=== PATIENT | female | born 1940 | race Caucasian/White ===

== ENCOUNTER 2016-12-28 12:21 | Inpatient (IN) | payer MEDICARE ==
--- NOTE | 2016-12-28 13:32 | XR ---
EXAMINATION TYPE: XR shoulder complete RT , 3 VIEWS DATE OF EXAM ORDERED: 12/28/2016 HISTORY: Pain. COMPARISON: None. FINDINGS: There are mild hypertrophic changes in the right AC joint. No fracture, dislocation or oth er acute osseous lesion is seen. IMPRESSION: 1. NO ACUTE OSSEOUS LESION. 2. MILD DEGENERATIVE CHANGE.
--- NOTE | 2016-12-28 13:40 | XR ---
EXAMINATION TYPE: XR Hip RT and AP Pelvis , 5 VIEWS DATE OF EXAM ORDERED: HISTORY: Pain. COMPARISON: None. FINDINGS: There are degenerative changes in the lower lumbar spine. There is mild degenerative ojeda e in both hips. No acute fracture is seen. There are phleboliths in the pelvis. IMPRESSION: NO ACUTE OSSEOUS LESION.
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
--- NOTE | 2016-12-28 14:36 | CT ---
EXAMINATION TYPE: CT hip RT wo con DATE OF EXAM: 12/28/2016 COMPARISON: Pelvic and right hip x-ray from earlier today. HISTORY: pt fell down some steps today. pain rt hip area. CT DLP: 289 mGycm Automated exposure control for dose reduction was used. FINDINGS: Osseous structures are demineralized which is noted to lower radiographic sensitivity. There is acute nondisplaced comminuted fracture through the inferior right pelvic ramus. No additional acute fractu re is evident. Visualized femur is intact. There is moderate joint space loss and mild spurring. Roun ded densities in the anterolateral subcutaneous tissue could reflect phleboliths or foreign body. Visualized pelvis shows no suspicious abnormality. IMPRESSION: THERE IS ACUTE NONDISPLACED FRACTURE THROUGH THE RIGHT INFERIOR PELVIC RAMUS.
[2016-12-28] MEDS ORDERED: HYDROcodone/APAP 5-325MG 1 EACH TAB PO PRN (16:02)
[2016-12-28] MEDS ORDERED: HYDROmorphone 0.5 MG/0.5 ML SYRINGE IVP PRN (16:02)
[2016-12-28] MEDS ORDERED: ONDANSETRON 4 MG/2 ML VIAL IVP PRN (16:02)
[2016-12-28] MEDS ORDERED: NALOXONE 0.4 MG/ML 1 ML VIAL IV PRN (16:02)
[2016-12-28] MEDS ORDERED: ACETAMINOPHEN TAB 325 MG TAB PO PRN (16:02)
[2016-12-28] MEDS ORDERED: MELATONIN 3 MG TABLET PO PRN (17:06)
--- NOTE | 2016-12-28 17:16 | XR ---
EXAMINATION TYPE: XR chest 1V portable DATE OF EXAM: 12/28/2016 CLINICAL HISTORY: Preoperative clearance. TECHNIQUE: Single AP portable upright view of the chest is obtained. COMPARISON: Chest x-ray from December 01, 2015 FINDINGS: There is chronic parenchymal change without suspicious focal airspace opacity, pleural eff usion, or pneumothorax seen bilaterally. The cardiac silhouette size is stable and within normal limi ts. The osseous structures are demineralized. IMPRESSION: No acute cardiopulmonary process.
[2016-12-28 17:40] VITALS: BMI 25.7
[2016-12-28 18:39] LABS: Basophils % (A) 0 %; CH 30.8; CHCM 33.2; Eosinophils # (A) 0.2 k/uL (0-0.7); Eosinophils % (A) 3 %; HCT 37.7 % (34.0-46.0); HGB 12.3 gm/dL (11.4-16.0); Luc # (Auto) 0.11; Luc % (Auto) 2; Lymphocytes # (A) 1.1 k/uL (1.0-4.8); Lymphocytes % (A) 17 %; MCH 30.5 pg (25.0-35.0); MCHC 32.7 g/dL (31.0-37.0); MCV 93.2 fL (80.0-100.0); Mean Platelet Volume 8.1; Monocytes # (A) 0.4 k/uL (0-1.0); Monocytes % (A) 7 %; Neutrophils # (A) 4.5 k/uL (1.3-7.7); Neutrophils % (A) 72 %; RBC 4.05 m/uL (3.80-5.40); RDW 13.9 % (11.5-15.5); WBC 6.3 k/uL (3.8-10.6); WBC (Perox) 6.22
[2016-12-28 18:47] LABS: ALT 39 U/L (9-52); AST 21 U/L (14-36); Alkaline Phosphatase 53 U/L (38-126); Anion Gap 13 mmol/L; Blood Urea Nitrogen 17 mg/dL (7-17); Calcium 10.2 mg/dL (8.4-10.2); Carbon Dioxide 25 mmol/L (22-30); Chloride 106 mmol/L (98-107); Glucose 83 mg/dL (74-99); Non-African American GFR(MDRD) >60 (>60 ml/min/1.73 sqM); Potassium 3.9 mmol/L (3.5-5.1); Sodium 144 mmol/L (137-145); Total Bilirubin 0.2 mg/dL (0.2-1.3); Total Protein 7.4 g/dL (6.3-8.2)
--- NOTE | 2016-12-28 19:28 | CONS ---
CONSULTATION DATE OF SERVICE: 12/28/2016. REASON FOR CONSULTATION: Advice regarding diabetes, and hypertension requested by Orthopedic surgery. HISTORY OF PRESENT ILLNESS: This 76-year-old woman with a past history diabetes, hypertension, history of DJD being followed by Dr. Payne in the outpatient setting also had right leg amputation also. The patient also was recently diagnosed to have osteoporosis as well also diabetes also. Patient apparently was going down the stairs. The patient tripped and apparently landed on the right side and the patient complaining of right hip pain. The patient came to [facility] and was admitted for further evaluation and treatment. Evaluation showed suspicious pubic ramus fracture as well as fracture and the patient admitted for further evaluation and treatment. There is no history of fever, rigors. No headache, loss of consciousness or seizures. No chest pain. No palpitations, shortness of breath, hematochezia or melena. PAST MEDICAL: Diabetes and hypertension. MEDICATIONS: Prior to admission include home medications are: 1. Benadryl 25 mg q.h.s. 2. Multivitamins 1 p.o. daily. 3. Melatonin 3 mg p.r.n. 4. Prinivil 10 mg daily. 5. Vitamin D3 1000 daily. 6. Aspirin 81 mg q.h.s. ALLERGIES: CLARITIN, INFLUENZA, LATEX AND FAMILY HISTORY: History of CVA AND TIA in the family. SOCIAL HISTORY: Previous history of smoking. No history of current smoking or alcohol intake. REVIEW OF SYSTEMS: ENT: No diminished vision. No diminished hearing. Cardiovascular: No angina or palpitations. Respirations: No cough. GI: No nausea or vomiting. : No dysuria. Central nervous system: No numbness or weakness. Allergy/Immunology: No asthma or hayfever. Musculoskeletal as mentioned earlier. Hematology/Oncology: No history of anemia. Endocrine: No history of diabetes or hypothyroidism. CONSTITUTIONAL: As mentioned earlier. Dermatology: Negative. RHEUMATOLOGY: Negative. PSYCHIATRY: As mentioned earlier. PHYSICAL EXAMINATION: Alert and oriented times three. Pulse 64, blood pressure 158/69, respirations 16 , temperature 98.7, pulse ox 94% on room air. HEENT: Conjunctivae normal. Neck: No jugular venous distention. Cardiovascular : S1, S2 muffled. Respiratory: Breath sounds diminished in the bases. No rhonchi. No crackles. ABDOMEN: Soft, nontender. No mass. Legs: Movement of the right leg is slightly painful. Nervous system: Higher functions as mentioned earlier. Moves all four limbs. No focal deficits. Lymphatics: No lymph nodes palpable in the neck, axillae or groin. Skin no ulcer, rash or bleeding. LABS: 1. Not available. ASSESSMENT: 1. Fall and right hip pain. Possibly pubic ramus fracture and acetabular fracture. Rule out femoral fracture. 2. Diabetes type 2. Recently on diet alone. 3. Hypertension. 4. History of degenerative joint disease. 5. History of osteoporosis. 6. History of right foot amputation. RECOMMENDATIONS AND DISCUSSION: In this 76-year-old woman who presented with multiple complex medical issues, at this time, I recommend to continue current medications. Symptomatic treatment. Otherwise at this time, I would recommend resume the home medications and basic labs, DVT prophylaxis. Incentive spirometry. Patient appears to be stable at this time and the patient cleared for surgery if needed. Otherwise I would also recommend the patient follow up closely with Dr. Payne in the outpatient setting for evaluation of osteoporosis. Otherwise the patient is already on vitamin D and continue to monitor and at this time I would recommend insulin scale also. Otherwise the prognosis is guarded. Thank you Dr. Christine for letting us participate in the care of this patient. MMODL / IJN: [id number] / SONIA
[2016-12-28 20:11] LABS: Glucose,Whole Blood 143 mg/dL (75-99)
[2016-12-28] MEDS: LISINOPRIL 10 MG TAB PO SCH (20:57)
[2016-12-28] MEDS ORDERED: diphenhydrAMINE 25 MG CAP PO SCH (21:00)
[2016-12-28] MEDS ORDERED: ASPIRIN 81 MG PO SCH (21:00)
[2016-12-28] MEDS: HEPARIN SODIUM,PORCINE 5,000 UNIT/ML 1 ML VIAL SQ SCH (22:07)
[2016-12-28] MEDS: INSULIN LISPRO (humaLOG) 300 UNIT/3 ML VIAL SQ SCH (22:08)
[2016-12-29] MEDS ORDERED: HEPARIN SODIUM,PORCINE 5,000 UNIT/ML 1 ML VIAL SQ SCH
[2016-12-29 01:42] VITALS: PULSE 54
[2016-12-29 06:59] LABS: Glucose,Whole Blood 100 mg/dL (75-99)
[2016-12-29 08:21] VITALS: BP 121/61; RESP 12; TEMP 98
[2016-12-29] MEDS: INSULIN LISPRO (humaLOG) 300 UNIT/3 ML VIAL SQ SCH ×2 (08:21→12:40)
[2016-12-29] MEDS: LISINOPRIL 10 MG TAB PO SCH (08:38)
[2016-12-29] MEDS: HEPARIN SODIUM,PORCINE 5,000 UNIT/ML 1 ML VIAL SQ SCH (08:39)
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
[2016-12-29 09:01] LABS: Basophils % (A) 0 %; CH 29.5; CHCM 32.6; Eosinophils # (A) 0.2 k/uL (0-0.7); Eosinophils % (A) 4 %; HCT 37.1 % (34.0-46.0); HDW 2.71; HGB 11.8 gm/dL (11.4-16.0); Luc # (Auto) 0.15; Luc % (Auto) 4; Lymphocytes # (A) 0.8 k/uL (1.0-4.8); Lymphocytes % (A) 20 %; MCHC 31.9 g/dL (31.0-37.0); Mean Platelet Volume 7.4; Monocytes # (A) 0.3 k/uL (0-1.0); Monocytes % (A) 7 %; Neutrophils # (A) 2.8 k/uL (1.3-7.7); Neutrophils % (A) 66 %; RBC 4.08 m/uL (3.80-5.40); WBC 4.2 k/uL (3.8-10.6); WBC (Perox) 4.32
[2016-12-29 09:05] LABS: Anion Gap 11 mmol/L; Blood Urea Nitrogen 17 mg/dL (7-17); Calcium 9.7 mg/dL (8.4-10.2); Carbon Dioxide 25 mmol/L (22-30); Chloride 108 mmol/L (98-107); Glucose 92 mg/dL (74-99); Non-African American GFR(MDRD) >60 (>60 ml/min/1.73 sqM); Potassium 4.2 mmol/L (3.5-5.1); Sodium 144 mmol/L (137-145)
[2016-12-29 11:38] LABS: Hemoglobin A1C 5.7 % (4.2-6.1)
[2016-12-29] MEDS ORDERED: CHOLECALCIFEROL 1,000 UNIT TAB PO SCH (12:00)
[2016-12-29] MEDS ORDERED: MULTIVITAMINS, THERA 1 EACH TAB PO SCH (12:00)
[2016-12-29 12:10] LABS: Glucose,Whole Blood 91 mg/dL (75-99)
--- NOTE | 2016-12-29 17:41 | PN ---
PROGRESS NOTE PRESENTING COMPLAINT: Fall. INTERVAL HISTORY: The patient is status post fall and fracture of the acetabulum and the pubic rami. Some pain is present but is able to get out of bed. Tolerating a diet. Not for any surgical intervention, per Surgery. REVIEW OF SYSTEMS: Done for constitutional, cardiovascular, GI, pulmonary, musculoskeletal; relevant findings as above. CURRENT MEDICATIONS: Reviewed. PHYSICAL EXAMINATION: Temperature 98, pulse 54, respiration 12, blood pressure 120/61, pulse ox 94% on room air. GENERAL APPEARANCE: Lying in bed, comfortable. EYES: Pupils equal.. Conjunctivae normal. NECK: JVD not raised. Mass not palpable. RESPIRATORY: Effort normal. LUNGS: Fair air entry. CARDIOVASCULAR: First and second sounds normal. PSYCH: Alert and oriented x3. Mood and affect normal. INVESTIGATIONS: White count 4.2, hemoglobin 11.8, potassium 4.2. ASSESSMENT: 1. Diabetes mellitus, type 2, on oral hypoglycemic. 2. Essential hypertension. 3. Primary osteoarthritis in multiple joints, bilateral. 4. Prosthesis in the right lower extremity. 5. Acute non-displaced fracture to the right inferior pelvic rami. 6. Possible non-displaced acetabular fracture on the right. PLAN: Home medications are to be continued. Care was discussed with the patient. Possibly patient will go home with support. Thank you, Dr. Christine. Patient to follow with Dr. Payne after discharge. MMODL / IJN: [id number] /
== END 2016-12-29 13:10 | disposition home health service (06) | DRG 535 ==
LOC: EC 12:21 → 3SUR 16:00
PROVIDERS: ADMIT Orthopaedic Surgery Hand Surgery; ATTEND Orthopaedic Surgery Hand Surgery
DX: S32.591A Other specified fracture of right pubis, initial encounter for closed fracture (principal); S32.409A Unspecified fracture of unspecified acetabulum, initial encounter for closed fracture; E11.9 Type 2 diabetes mellitus without complications; S33.6XXA Sprain of sacroiliac joint, initial encounter; S40.011A Contusion of right shoulder, initial encounter; I10 Essential (primary) hypertension; M81.0 Age-related osteoporosis without current pathological fracture; M19.91 Primary osteoarthritis, unspecified site; Z79.82 Long term (current) use of aspirin; Z79.899 Other long term (current) drug therapy; Z89.431 Acquired absence of right foot; Z87.891 Personal history of nicotine dependence; Z90.710 Acquired absence of both cervix and uterus; Z88.7 Allergy status to serum and vaccine; Z88.8 Allergy status to other drugs, medicaments and biological substances; Z91.040 Latex allergy status; W10.8XXA Fall (on) (from) other stairs and steps, initial encounter; Y92.008 Other place in unspecified non-institutional (private) residence as the place of occurrence of the external cause
CPT/HCPCS: 71010; 73502; 80048; 80053; 83036; 85025; 93005; 99285

== ENCOUNTER 2018-07-21 01:24 | Emergency (ER) | payer MEDICARE ==
[2018-07-21 01:32] VITALS: TEMP 98.3
[2018-07-21] MEDS ORDERED: OXYMETAZOLINE 0.05% NASL SPRAY 1 SPRAY BOTTLE NASAL STA (01:38)
[2018-07-21] MEDS ORDERED: LIDOCAINE/EPINEPHR/TETRACAINE 5 ML BOTTLE TOPICAL ONE (01:38)
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
[2018-07-21 02:33] VITALS: BP 130/73; PULSE 90; RESP 16
== END 2018-07-21 02:32 | disposition home or self-care (01) ==
LOC: EC 01:24
DX: R04.0 Epistaxis (principal); I10 Essential (primary) hypertension; Z79.82 Long term (current) use of aspirin; Z79.899 Other long term (current) drug therapy; Z88.8 Allergy status to other drugs, medicaments and biological substances; Z91.040 Latex allergy status; Z88.7 Allergy status to serum and vaccine; Z87.891 Personal history of nicotine dependence; Z89.431 Acquired absence of right foot
CPT/HCPCS: 99283

== ENCOUNTER 2019-04-07 18:29 | Emergency (ER) | payer MEDICARE ==
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
[2019-04-07] MEDS ORDERED: SODIUM CHLORIDE 0.9% 1,000 ML IV STA (19:55)
[2019-04-07 20:25] LABS: Basophils # (A) 0.1 k/uL (0-0.2); Basophils % (A) 1 %; Eosinophils # (A) 0.2 k/uL (0-0.7); Eosinophils % (A) 3 %; HCT 39.8 % (34.0-46.0); HGB 13.3 gm/dL (11.4-16.0); Lymphocytes # (A) 1.4 k/uL (1.0-4.8); Lymphocytes % (A) 24 %; MCH 29.8 pg (25.0-35.0); MCHC 33.3 g/dL (31.0-37.0); MCV 89.5 fL (80.0-100.0); Mean Platelet Volume 7.9; Monocytes # (A) 0.4 k/uL (0-1.0); Monocytes % (A) 7 %; Neutrophils # (A) 3.8 k/uL (1.3-7.7); Neutrophils % (A) 63 %; Platelet Count 213 k/uL (150-450); RBC 4.45 m/uL (3.80-5.40); RDW 12.9 % (11.5-15.5); WBC 6.1 k/uL (3.8-10.6)
[2019-04-07 20:28] LABS: Appearance,Urine Clear (Clear); Bacteria,Urine Many /hpf; Bilirubin,Urine Negative (Negative); Blood,Urine Negative (Negative); Color,Urine Light Yellow; Glucose,Urine (UA) Negative (Negative); Ketones,Urine Negative (Negative); Leukocyte Esterase,Urine Trace (Negative); Mucus,Urine Rare /hpf; Nitrite,Urine Negative (Negative); PH, Urine 5.5 (5.0-8.0); Protein,Urine Negative (Negative); RBC,Urine <1 /hpf (0-5); Squamous Epithelial Cell,Urine 2 /hpf (0-4); Urobilinogen,Urine <2.0 mg/dL (<2.0); WBC,Urine 2 /hpf (0-5)
[2019-04-07 20:35] LABS: Albumin 4.6 g/dL (3.5-5.0); Calcium 9.6 mg/dL (8.4-10.2); Magnesium 2.1 mg/dL (1.6-2.3); Phosphorus 3.8 mg/dL (2.5-4.5); Potassium 3.8 mmol/L (3.5-5.1); Total Bilirubin 0.4 mg/dL (0.2-1.3); Total Protein 7.9 g/dL (6.3-8.2)
[2019-04-07 20:40] LABS: INR 0.9 (<1.2); Prothrombin Time 9.5 sec (9.0-12.0)
[2019-04-07 20:41] LABS: Partial Thromboplastin Time 21.3 sec (22.0-30.0)
--- NOTE | 2019-04-07 21:34 | CT ---
EXAMINATION: CT brain wo con DATE AND TIME: 04/07/2019 9:27 PM CLINICAL INDICATION: PHH; weakness TECHNIQUE: Standard departmental protocol.; DLP total: 1193.8 mGy-cm. COMPARISON: 12/01/2015 FINDINGS: The calvarium is intact. There is no intracranial hemorrhage. There is no intracranial mass or mass effect. No definite new intra-axial or extra-axial attenuation defect. The paranasal sinuses, middle ear cavities, and mastoid sinus air cells are clear. The orbits are unremarkable. IMPRESSION: NO ACUTE PROCESS.
--- NOTE | 2019-04-07 22:08 | CT ---
EXAMINATION TYPE: CT angio head neck DATE OF EXAM: 04/07/2019 COMPARISON: None HISTORY: Weakness. CT DLP: 465.7 mGycm Automated exposure control for dose reduction was used. CONTRAST: Performed with IV Contrast, patient injected with 65ml mL of Isovue 370. Multiple axial sections were obtained from the aortic arch to the vertex of the brain with intravenou s contrast. There are 3-D post processed images. There is normal branching pattern of the great vessels on the aortic arch. There is bilateral arteria l flow in the subclavian arteries. There is arterial flow in the common internal and external carotid arteries bilaterally. There is bilateral arterial flow in the vertebral arteries. The carotid artery bifurcations appear widely patent. There is no evidence of stenosis. There is no evidence of carotid or vertebral artery aneurysm or dissection. There is arterial flow in the anterior middle and posterior cerebral arteries. There is some ethmoid sinus and sphenoid sinus mucosal thickening. There is normal contrast opacification of the venous sinuses. There is dural flow in the right staff respiratory therapist ior communicating artery. I see no evidence of intracranial arterial stenosis. There is no mass effec t. There is no sign of aneurysm or neovascularity. There is arterial flow in the vertebrobasilar sung ry system. IMPRESSION: Negative CT angiogram of the neck. Negative CT angiogram of the brain. No evidence of hemodynamic fela nosis.
[2019-04-07] MEDS ORDERED: ASPIRIN 325 MG TAB PO STA (22:14)
[2019-04-07] MEDS ORDERED: SODIUM CHLORIDE 0.9% 1,000 ML IV SCH (22:15)
[2019-04-07 23:33] VITALS: BP 146/77; PULSE 76; RESP 18; TEMP 98
[2019-04-08] MEDS ORDERED: ASPIRIN 325 MG TAB PO SCH (22:15)
== END 2019-04-07 23:40 | disposition home or self-care (01) ==
LOC: EC 18:29 → 3SCARD 22:16 → UNDOADMIN 22:16 → UNDODISIN 23:37
DX: E11.9 Type 2 diabetes mellitus without complications (principal); R27.0 Ataxia, unspecified; I10 Essential (primary) hypertension; Z79.82 Long term (current) use of aspirin; Z79.899 Other long term (current) drug therapy; Z88.8 Allergy status to other drugs, medicaments and biological substances; Z88.7 Allergy status to serum and vaccine; Z91.040 Latex allergy status; Z89.431 Acquired absence of right foot; Z87.891 Personal history of nicotine dependence
CPT/HCPCS: 96360 ×2; 96361; 99285 ×2; 36415; 93005; 83880; 80053; 83605; 83735; 84100; 84484; 85025; 85610; 85730; 81001; 70496; 70450; 70498; Q9967

== ENCOUNTER → 2019-05-12 | Outpatient (CLI) | payer MEDICARE ==
--- NOTE | 2019-05-13 06:38 | CT ---
EXAMINATION TYPE: CT sinus wo con DATE OF EXAM: 05/12/2019 COMPARISON: CT brain April 07, 2019. HISTORY: Chronic recurrent sinusitis per order. Facial pain per patient. CT DLP: 667 mGycm. Automated Exposure Control for Dose Reduction was Utilized. TECHNIQUE: CT scan of the sinuses is performed without contrast, axial images are obtained, coronal r eformatted images are also reviewed. FINDINGS: Fairly moderate eccentric mucosal thickening involving the large caliber left maxillary sin us is redemonstrated. Minimal mucosal thickening inferior aspect of the smaller caliber right sphenoi d sinus. Remainder paranasal sinuses are clear without suspicious opacification or air-fluid levels. The ostiomeatal complex is patent bilaterally seen best on coronal image 30. Mild antral mucosal thic kening on the left is noted. Visualized portion of mastoid air cells show no abnormal opacification. There is left sided scleral b uckle redemonstrated. Visualized portion of brain parenchyma shows diffuse cerebral atrophy and chron ic small vessel ischemic change. IMPRESSION: Chronic paranasal sinus disease redemonstrated at level of left sphenoid sinus. No acute sinusitis currently.
== END | disposition home or self-care (01) ==
LOC: RADCTMAIN 17:10
PROVIDERS: ATTEND Family Medicine
DX: J32.3 Chronic sphenoidal sinusitis (principal)
CPT/HCPCS: 70486

== ENCOUNTER 2019-11-28 14:06 | Emergency (ER) | payer MEDICARE ==
[2019-11-28 14:28] VITALS: RESP 18; TEMP 98.7
[2019-11-28] MEDS ORDERED: SODIUM CHLORIDE 0.9% 1,000 ML IV STA (14:50)
[2019-11-28 15:24] LABS: Basophils # (A) 0.1 k/uL (0-0.2); Basophils % (A) 1 %; Eosinophils # (A) 0.1 k/uL (0-0.7); Eosinophils % (A) 2 %; HCT 38.5 % (34.0-46.0); HGB 12.4 gm/dL (11.4-16.0); Lymphocytes # (A) 1.2 k/uL (1.0-4.8); Lymphocytes % (A) 15 %; MCH 28.8 pg (25.0-35.0); MCHC 32.3 g/dL (31.0-37.0); MCV 89.2 fL (80.0-100.0); Mean Platelet Volume 7.5; Monocytes # (A) 0.5 k/uL (0-1.0); Monocytes % (A) 6 %; Neutrophils # (A) 5.9 k/uL (1.3-7.7); Neutrophils % (A) 74 %; Platelet Count 242 k/uL (150-450); RBC 4.32 m/uL (3.80-5.40); RDW 13.6 % (11.5-15.5); WBC 8.1 k/uL (3.8-10.6)
[2019-11-28 15:30] LABS: Appearance,Urine Clear (Clear); Bilirubin,Urine Negative (Negative); Blood,Urine Negative (Negative); Color,Urine Light Yellow; Glucose,Urine (UA) Negative (Negative); Ketones,Urine Negative (Negative); Leukocyte Esterase,Urine Negative (Negative); Nitrite,Urine Negative (Negative); Protein,Urine Negative (Negative); Specific Gravity,Urine 1.019 (1.001-1.035); Urobilinogen,Urine <2.0 mg/dL (<2.0)
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
[2019-11-28 15:32] LABS: Albumin 4.7 g/dL (3.5-5.0); Calcium 9.8 mg/dL (8.4-10.2); Potassium 3.9 mmol/L (3.5-5.1); Total Bilirubin 0.3 mg/dL (0.2-1.3); Total Protein 7.8 g/dL (6.3-8.2)
--- NOTE | 2019-11-28 16:20 | US ---
EXAMINATION TYPE: US abdomen limited DATE OF EXAM: 11/28/2019 COMPARISON: NONE CLINICAL HISTORY: RUQ pain. RUQ pain EXAM MEASUREMENTS: Liver Length: 19.5 cm Gallbladder Wall: cm CBD: cm Right Kidney: 10.4 x 4.5 x 4.2 cm Pancreas: Obscured by bowel gas Liver: Increased attenuation hepatomegaly Gallbladder: wnl Evidence for sonographic Agustin's sign: No CBD: wnl Right Kidney: wnl IMPRESSION: Hepatomegaly with underlying fatty hepatic infiltration.
--- NOTE | 2019-11-28 17:06 | XR ---
EXAMINATION TYPE: XR ribs RT w pa chest xray DATE OF EXAM: 11/28/2019 COMPARISON: NONE HISTORY: Pain TECHNIQUE: 5 views FINDINGS: I see no pleural effusion or pneumothorax. Right lung is clear of infiltrate. There is no e vidence of a rib fracture. IMPRESSION: Negative right rib exam.
[2019-11-28] MEDS ORDERED: ACET/COD 300 MG/30 MG STARTER PACK 6 TAB BTL PO STA (17:19)
[2019-11-28 17:32] VITALS: BP 168/81; PULSE 90
== END 2019-11-28 17:31 | disposition home or self-care (01) ==
LOC: EC 14:06
DX: R10.11 Right upper quadrant pain (principal); R07.81 Pleurodynia; E11.9 Type 2 diabetes mellitus without complications; I10 Essential (primary) hypertension; Z79.84 Long term (current) use of oral hypoglycemic drugs; Z79.899 Other long term (current) drug therapy; Z90.710 Acquired absence of both cervix and uterus; Z88.8 Allergy status to other drugs, medicaments and biological substances; Z88.7 Allergy status to serum and vaccine; Z88.0 Allergy status to penicillin
CPT/HCPCS: 36415; 76705; 80053; 81003; 83690; 84484; 85025; 93005; 96360; 99284

== ENCOUNTER 2021-12-06 16:22 | Emergency (ER) | payer MEDICARE ==
[2021-12-06 17:02] LABS: Basophils % (A) 1 %; Eosinophils # (A) 0.1 k/uL (0-0.7); Eosinophils % (A) 2 %; HCT 37.6 % (34.0-46.0); HGB 12.3 gm/dL (11.4-16.0); Lymphocytes # (A) 1.2 k/uL (1.0-4.8); Lymphocytes % (A) 19 %; MCH 29.1 pg (25.0-35.0); MCHC 32.7 g/dL (31.0-37.0); MCV 89.1 fL (80.0-100.0); Mean Platelet Volume 7.6; Monocytes # (A) 0.5 k/uL (0-1.0); Monocytes % (A) 8 %; Neutrophils # (A) 4.4 k/uL (1.3-7.7); Neutrophils % (A) 68 %; Platelet Count 244 k/uL (150-450); RBC 4.22 m/uL (3.80-5.40); RDW 13.8 % (11.5-15.5); WBC 6.5 k/uL (3.8-10.6)
[2021-12-06 17:11] LABS: INR 0.9 (<1.2); Prothrombin Time 9.5 sec (9.0-12.0)
[2021-12-06 17:16] LABS: ALT 26 U/L (4-34); AST 25 U/L (14-36); African American GFR (CKD) >90 (>60 ml/min/1.73 sqM); Albumin 4.5 g/dL (3.5-5.0); Alkaline Phosphatase 59 U/L (38-126); Anion Gap 11 mmol/L; Blood Urea Nitrogen 20 mg/dL (7-17); Calcium 9.5 mg/dL (8.4-10.2); Carbon Dioxide 23 mmol/L (22-30); Chloride 105 mmol/L (98-107); Glucose 121 mg/dL (74-99); Non-African American GFR(CKD) 79 (>60 ml/min/1.73 sqM); Potassium 4.2 mmol/L (3.5-5.1); Sodium 139 mmol/L (137-145); Total Bilirubin 0.4 mg/dL (0.2-1.3); Total Protein 7.2 g/dL (6.3-8.2)
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
--- NOTE | 2021-12-06 19:14 | XR ---
EXAMINATION TYPE: XR chest 1V portable DATE OF EXAM: 12/06/2021 COMPARISON: 11/28/2019 HISTORY: Shortness of breath TECHNIQUE: Frontal and lateral views of the chest are obtained. FINDINGS: Scattered senescent parenchymal changes noted. Hyperinflation compatible with COPD. No evidence for infiltrate. No evidence for atelectasis. Heart size is stable. Mediastinal structures are stable and grossly unremarkable. No evidence for hilar prominence. Degenerative changes dorsal spine. IMPRESSION: 1. No evidence for acute pulmonary disease.
[2021-12-06 19:18] VITALS: TEMP 98.2
[2021-12-06 19:41] VITALS: BP 186/90; PULSE 83; RESP 18
== END 2021-12-06 20:27 | disposition home or self-care (01) ==
LOC: EC 16:22
DX: I10 Essential (primary) hypertension (principal); E11.9 Type 2 diabetes mellitus without complications; Z88.8 Allergy status to other drugs, medicaments and biological substances; Z88.7 Allergy status to serum and vaccine; Z88.0 Allergy status to penicillin; Z91.040 Latex allergy status; Z79.84 Long term (current) use of oral hypoglycemic drugs; Z79.899 Other long term (current) drug therapy
CPT/HCPCS: 36415; 71045; 80053; 84484; 85025; 85610; 93005; 99284

== ENCOUNTER 2022-01-06 07:31 | Emergency (ER) | payer MEDICARE ==
[2022-01-06 07:38] VITALS: RESP 18; TEMP 96.9
[2022-01-06] MEDS ORDERED: KETOROLAC 15 MG/ML 1 ML VIAL IVP STA (07:51)
[2022-01-06] MEDS ORDERED: ENALAPRILAT 1.25 MG/ML 1 ML VIAL IVP STA (07:51)
[2022-01-06] MEDS ORDERED: ONDANSETRON 4 MG/2 ML VIAL IVP STA (07:52)
[2022-01-06] MEDS ORDERED: SODIUM CHLORIDE 0.9% 500 ML 500 ML IV ONE (07:52)
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
[2022-01-06 08:08] LABS: Basophils % (A) 1 %; Eosinophils # (A) 0.2 k/uL (0-0.7); Eosinophils % (A) 3 %; HGB 12.2 gm/dL (11.4-16.0); Lymphocytes # (A) 0.8 k/uL (1.0-4.8); Lymphocytes % (A) 15 %; MCH 29.6 pg (25.0-35.0); MCV 87.3 fL (80.0-100.0); Mean Platelet Volume 8.1; Monocytes # (A) 0.3 k/uL (0-1.0); Monocytes % (A) 5 %; Neutrophils # (A) 4.2 k/uL (1.3-7.7); Neutrophils % (A) 73 %; Platelet Count 216 k/uL (150-450); RBC 4.13 m/uL (3.80-5.40); RDW 14.1 % (11.5-15.5); WBC 5.7 k/uL (3.8-10.6)
[2022-01-06 08:24] LABS: ALT 29 U/L (4-34); AST 26 U/L (14-36); African American GFR (CKD) >90 (>60 ml/min/1.73 sqM); Albumin 4.3 g/dL (3.5-5.0); Alkaline Phosphatase 43 U/L (38-126); Anion Gap 13 mmol/L; Blood Urea Nitrogen 20 mg/dL (7-17); Calcium 9.4 mg/dL (8.4-10.2); Carbon Dioxide 22 mmol/L (22-30); Chloride 104 mmol/L (98-107); Glucose 169 mg/dL (74-99); Magnesium 1.6 mg/dL (1.6-2.3); Non-African American GFR(CKD) 87 (>60 ml/min/1.73 sqM); Potassium 4.2 mmol/L (3.5-5.1); Sodium 139 mmol/L (137-145); Total Bilirubin 0.5 mg/dL (0.2-1.3)
--- NOTE | 2022-01-06 08:47 | XR ---
EXAMINATION TYPE: XR chest 2V DATE OF EXAM: 01/06/2022 COMPARISON: Chest x-ray 12/06/2021 CT 04/07/2019 HISTORY: Chest pain TECHNIQUE: Frontal and lateral views of the chest are obtained. FINDINGS: There is no focal air space opacity, pleural effusion, or pneumothorax seen. There are ov erlying leads. Biapical pleural thickening is noted. The cardiac silhouette size is within normal villalba its. The osseous structures are intact with thoracic spondylosis, there is a spinal curvature, righ t hemidiaphragm is again elevated. IMPRESSION: No acute cardiopulmonary process. There are some underlying emphysematous change.
[2022-01-06] MEDS ORDERED: HYDROmorphone 0.5 MG/0.5 ML SYRINGE IVP STA (09:00)
[2022-01-06 10:30] VITALS: BP 131/64; PULSE 77
== END 2022-01-06 10:30 | disposition home or self-care (01) ==
LOC: EC 07:31
DX: R55 Syncope and collapse (principal); E11.9 Type 2 diabetes mellitus without complications; I10 Essential (primary) hypertension; Z79.899 Other long term (current) drug therapy; Z88.8 Allergy status to other drugs, medicaments and biological substances; Z88.7 Allergy status to serum and vaccine; Z91.040 Latex allergy status; Z88.0 Allergy status to penicillin; Z88.9 Allergy status to unspecified drugs, medicaments and biological substances
CPT/HCPCS: 36415; 93005; 80053; 83735; 84484; 85025; 71046; 99285; 96374; 96375 ×3; 96361; J2405; J1885; J1170

== ENCOUNTER 2022-01-08 18:59 | Emergency (ER) | payer MEDICARE ==
[2022-01-08 19:10] VITALS: BP 174/83; PULSE 82; RESP 16; TEMP 97.4
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
== END 2022-01-08 21:04 | disposition home or self-care (01) ==
LOC: EC 18:59
DX: I10 Essential (primary) hypertension (principal); E11.9 Type 2 diabetes mellitus without complications; Z79.899 Other long term (current) drug therapy; Z88.0 Allergy status to penicillin; Z88.7 Allergy status to serum and vaccine; Z88.9 Allergy status to unspecified drugs, medicaments and biological substances
CPT/HCPCS: 99284

== ENCOUNTER 2022-06-23 09:16 | Emergency (ER) | payer MEDICARE ==
[2022-06-23 09:26] VITALS: TEMP 98.7
[2022-06-23] MEDS ORDERED: ASPIRIN 81 MG PO STA (10:04)
[2022-06-23] MEDS ORDERED: SODIUM CHLORIDE 0.9% 1,000 ML IV STA (10:04)
[2022-06-23] MEDS ORDERED: LIDOCAINE 5% PATCH TOPICAL STA (10:05)
[2022-06-23 10:18] LABS: Basophils % (A) 0 %; Eosinophils # (A) 0.1 k/uL (0-0.7); Eosinophils % (A) 1 %; HCT 32.8 % (34.0-46.0); HGB 10.8 gm/dL (11.4-16.0); Lymphocytes # (A) 0.4 k/uL (1.0-4.8); Lymphocytes % (A) 7 %; MCH 27.4 pg (25.0-35.0); Mean Platelet Volume 7.1; Monocytes # (A) 0.3 k/uL (0-1.0); Monocytes % (A) 5 %; Neutrophils # (A) 5.3 k/uL (1.3-7.7); Neutrophils % (A) 85 %; Platelet Count 245 k/uL (150-450); RBC 3.95 m/uL (3.80-5.40); RDW 14.4 % (11.5-15.5); WBC 6.2 k/uL (3.8-10.6)
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
[2022-06-23 10:30] LABS: ALT 20 U/L (4-34); AST 20 U/L (14-36); African American GFR (CKD) >90 (>60 ml/min/1.73 sqM); Albumin 3.8 g/dL (3.5-5.0); Alkaline Phosphatase 46 U/L (38-126); Anion Gap 10 mmol/L; Blood Urea Nitrogen 16 mg/dL (7-17); Calcium 9.2 mg/dL (8.4-10.2); Carbon Dioxide 22 mmol/L (22-30); Chloride 107 mmol/L (98-107); Glucose 228 mg/dL (74-99); Magnesium 1.5 mg/dL (1.6-2.3); Non-African American GFR(CKD) 87 (>60 ml/min/1.73 sqM); Sodium 139 mmol/L (137-145); Total Bilirubin 0.3 mg/dL (0.2-1.3); Total Protein 6.9 g/dL (6.3-8.2)
[2022-06-23 10:37] LABS: INR 0.9 (<1.2); Partial Thromboplastin Time 23.9 sec (22.0-30.0)
--- NOTE | 2022-06-23 13:16 | XR ---
EXAMINATION TYPE: XR chest 2V DATE OF EXAM: 06/23/2022 COMPARISON: 01/06/2022 INDICATION: Chest pain short of breath TECHNIQUE: Frontal and lateral views of the chest are obtained. FINDINGS: The heart size is normal. The pulmonary vasculature is normal. There is a small left pleural effusion. Minimal adjacent atelectasis may be present. IMPRESSION: 1. Small left pleural effusion with mild adjacent atelectasis.
--- NOTE | 2022-06-23 13:21 | CT ---
CT CHEST FOR PULMONARY EMBOLISM. EXAMINATION TYPE: CT chest angio for PE DATE OF EXAM: 06/23/2022 INDICATION: Elevated d-dimer, atypical chest pain. CT DLP: 336.2 mGycm, Automated exposure control for dose reduction was used. CONTRAST: Patient injected with 100 mL of Isovue 370. COMPARISON: None TECHNIQUE: CT of the chest is performed on a spiral scan at 2 mm thick sections. Study is performed with intravenous contrast timed for evaluation for pulmonary embolism. This will limit additional po rtions of the evaluation. 3-D MIP images reconstructed by the technologist are reviewed on the compu ter in the coronal and sagittal planes. FINDINGS: No persistent filling defects are evident to suggest an acute pulmonary embolism. No mediastinal or hilar adenopathy enlarged by CT criteria is evident. The ascending aorta diameter at the level of the main pulmonary artery is 2.8 cm. The main pulmonary artery diameter at the bifur cation is 2.1 cm. There is a small left pleural effusion. Portion of this may be loculated. Limited CT section through the upper abdomen. Moderate fatty infiltration liver is present. There may be a small hiatal hernia. IMPRESSIONS: 1. No acute pulmonary embolism. 2. Small left pleural effusion portion which may be loculated.
[2022-06-23 14:48] VITALS: BP 152/82; PULSE 101; RESP 16
== END 2022-06-23 14:50 | disposition home or self-care (01) ==
LOC: EC 09:16
DX: R07.89 Other chest pain (principal); M54.12 Radiculopathy, cervical region; E11.9 Type 2 diabetes mellitus without complications; I10 Essential (primary) hypertension; Z79.84 Long term (current) use of oral hypoglycemic drugs; Z79.899 Other long term (current) drug therapy; Z88.0 Allergy status to penicillin; Z88.2 Allergy status to sulfonamides; Z88.6 Allergy status to analgesic agent; Z88.1 Allergy status to other antibiotic agents; Z88.8 Allergy status to other drugs, medicaments and biological substances; Z88.7 Allergy status to serum and vaccine; Z91.040 Latex allergy status; Z88.5 Allergy status to narcotic agent
CPT/HCPCS: 36415; 93005; 85379; 83880; 80053; 83735; 84484; 85025; 85610; 85730; 71046; 71275; 99285; 96360; Q9967

== ENCOUNTER 2023-01-26 20:29 | Emergency (ER) | payer MEDICARE ==
[2023-01-26 20:41] VITALS: RESP 18
[2023-01-26] MEDS ORDERED: cloNIDine HCL 0.2 MG TAB PO STA (22:24)
[2023-01-26] MEDS ORDERED: ACETAMINOPHEN TAB 325 MG TAB PO STA (22:25)
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
[2023-01-26 22:53] LABS: Basophils % (A) 0 %; Eosinophils # (A) 0.1 k/uL (0-0.7); Eosinophils % (A) 3 %; HCT 35.7 % (34.0-46.0); Lymphocytes # (A) 0.5 k/uL (1.0-4.8); Lymphocytes % (A) 12 %; MCH 28.3 pg (25.0-35.0); MCHC 33.5 g/dL (31.0-37.0); MCV 84.3 fL (80.0-100.0); Mean Platelet Volume 7.7; Monocytes # (A) 0.2 k/uL (0-1.0); Monocytes % (A) 5 %; Neutrophils # (A) 3.1 k/uL (1.3-7.7); Neutrophils % (A) 78 %; Platelet Count 216 k/uL (150-450); RBC 4.24 m/uL (3.80-5.40); RDW 14.2 % (11.5-15.5)
[2023-01-26 23:03] LABS: ALT 22 U/L (4-34); AST 24 U/L (14-36); African American GFR (CKD) >90 (>60 ml/min/1.73 sqM); Albumin 4.5 g/dL (3.5-5.0); Alkaline Phosphatase 48 U/L (38-126); Anion Gap 13 mmol/L; Blood Urea Nitrogen 19 mg/dL (7-17); Calcium 9.8 mg/dL (8.4-10.2); Carbon Dioxide 22 mmol/L (22-30); Chloride 105 mmol/L (98-107); Glucose 105 mg/dL (74-99); Magnesium 1.6 mg/dL (1.6-2.3); Non-African American GFR(CKD) 82 (>60 ml/min/1.73 sqM); Potassium 4.2 mmol/L (3.5-5.1); Sodium 140 mmol/L (137-145); Total Bilirubin 0.4 mg/dL (0.2-1.3); Total Protein 7.7 g/dL (6.3-8.2)
[2023-01-27 00:44] VITALS: BP 156/87; PULSE 86; TEMP 98.5
== END 2023-01-27 00:21 | disposition home or self-care (01) ==
LOC: EC 20:29
DX: I10 Essential (primary) hypertension (principal); E11.9 Type 2 diabetes mellitus without complications; Z79.84 Long term (current) use of oral hypoglycemic drugs; Z79.899 Other long term (current) drug therapy; Z88.0 Allergy status to penicillin; Z88.5 Allergy status to narcotic agent; Z88.7 Allergy status to serum and vaccine; Z88.8 Allergy status to other drugs, medicaments and biological substances; Z91.040 Latex allergy status
CPT/HCPCS: 36415; 80053; 83735; 84484; 85025; 99283

== ENCOUNTER 2023-01-28 21:23 | Emergency (ER) | payer MEDICARE ==
[2023-01-28 21:43] VITALS: TEMP 97.9
[2023-01-28] MEDS ORDERED: hydrALAZINE HCL 20 MG/ML 1 ML VIAL IVP STA (22:22)
[2023-01-28 23:09] LABS: Basophils % (A) 0 %; Eosinophils # (A) 0.1 k/uL (0-0.7); Eosinophils % (A) 4 %; HCT 33.5 % (34.0-46.0); HGB 11.2 gm/dL (11.4-16.0); Lymphocytes # (A) 0.5 k/uL (1.0-4.8); Lymphocytes % (A) 16 %; MCH 28.2 pg (25.0-35.0); MCHC 33.4 g/dL (31.0-37.0); MCV 84.4 fL (80.0-100.0); Mean Platelet Volume 7.8; Monocytes # (A) 0.2 k/uL (0-1.0); Monocytes % (A) 6 %; Neutrophils # (A) 2.3 k/uL (1.3-7.7); Neutrophils % (A) 72 %; Platelet Count 196 k/uL (150-450); RBC 3.96 m/uL (3.80-5.40); RDW 14.4 % (11.5-15.5); WBC 3.2 k/uL (3.8-10.6)
[2023-01-28 23:14] VITALS: BP 170/78; PULSE 81; RESP 16
[2023-01-28 23:20] LABS: African American GFR (CKD) 83 (>60 ml/min/1.73 sqM); Anion Gap 12 mmol/L; Blood Urea Nitrogen 24 mg/dL (7-17); Calcium 9.8 mg/dL (8.4-10.2); Carbon Dioxide 22 mmol/L (22-30); Chloride 105 mmol/L (98-107); Glucose 91 mg/dL (74-99); Non-African American GFR(CKD) 72 (>60 ml/min/1.73 sqM); Potassium 4.5 mmol/L (3.5-5.1); Sodium 139 mmol/L (137-145)
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
== END 2023-01-29 00:02 | disposition home or self-care (01) ==
LOC: EC 21:23
DX: I10 Essential (primary) hypertension (principal); E11.9 Type 2 diabetes mellitus without complications; Z79.84 Long term (current) use of oral hypoglycemic drugs; Z79.899 Other long term (current) drug therapy; Z88.0 Allergy status to penicillin; Z88.5 Allergy status to narcotic agent; Z88.8 Allergy status to other drugs, medicaments and biological substances; Z88.7 Allergy status to serum and vaccine; Z91.040 Latex allergy status
CPT/HCPCS: 36415; 80048; 84443; 85025; 99284; 96374; J0360

== ENCOUNTER 2023-06-05 08:12 | Day surgery (SDC) | payer MEDICARE ==
[~2023-06-05 08:12] MED LIST: LIDOCAINE 1% (10MG/ML) FOR IV START INTRADERMA PRN
[2023-06-05] MEDS: LACTATED RINGERS 1,000 ML IV SCH (08:50)
[2023-06-05 08:53] LABS: Glucose,Whole Blood 108 mg/dL (70-110)
[2023-06-05 08:56] VITALS: RESP 16; TEMP 97.8
[2023-06-05] MEDS ORDERED: ONDANSETRON 4 MG/2 ML VIAL ONE (09:03)
[2023-06-05] MEDS: ONDANSETRON 4 MG/2 ML VIAL IVP ONE (09:04)
[2023-06-05] MEDS ORDERED: PROPOFOL 10 MG/ML 20 ML VIAL IV ONE (10:56)
--- NOTE | 2023-06-05 11:27 | P.PCN ---
Date of Procedure: 06/05/23 Procedure(s) Performed: BRIEF HISTORY: Patient is a 82-year-old pleasant white female scheduled for an elective colonoscopy as a part of screening for colon cancer and the family history of colon cancer PROCEDURE PERFORMED: Colonoscopy with snare polypectomy. PREOPERATIVE DIAGNOSIS: Screening for colon cancer/family history of colon cancer. IV sedation per Anesthesia. PROCEDURE: After informed consent was obtained, the patient, was brought into the endoscopy unit. IV sedation was administered by Anesthesia under continuous monitoring. Digital rectal examination was normal. Initially the Olympus CF-160 flexible video colonoscope was then inserted in the rectum, gradually advanced into the cecum without any difficulty. Careful examination was performed as the scope was gradually being withdrawn. Ileocecal valve and the appendiceal orifice were visualized and appeared normal. Prep was excellent. Mucosa of the cecum, ascending colon, appeared normal. In the hepatic flexure there was a 3 mm polyp that was removed by cold snare polypectomy. In the proximal transverse colon there was a 6 minute a polyp removed by cold snare polypectomy. Rest of the transverse colon, descending colon, sigmoid colon, and rectum appeared normal. Scattered sigmoid diverticula cyst. Retroflexion was performed in the rectum and no lesions were seen. The patient tolerated the procedure well. IMPRESSION: 6 mm transverse colon polyp status post cold snare polypectomy 3 mm hepatic this polyp status post cold snare polypectomy Scattered sigmoid diverticulosis RECOMMENDATIONS: Findings of this examination were discussed with the patient as well as a family. She was advised to follow with the biopsy results. Continue with a high-fiber diet and fiber supplements daily.
[2023-06-05 11:56] VITALS: BP 137/79; PULSE 90
== END 2023-06-05 12:09 | disposition home or self-care (01) ==
LOC: ORWHC2ENDO 08:12
PROVIDERS: ATTEND Internal Medicine Gastroenterology
DX: Z12.11 Encounter for screening for malignant neoplasm of colon (principal); D12.3 Benign neoplasm of transverse colon; K57.30 Diverticulosis of large intestine without perforation or abscess without bleeding; I10 Essential (primary) hypertension; E11.9 Type 2 diabetes mellitus without complications; M19.90 Unspecified osteoarthritis, unspecified site; Z79.84 Long term (current) use of oral hypoglycemic drugs; Z87.891 Personal history of nicotine dependence; Z79.899 Other long term (current) drug therapy; Z88.0 Allergy status to penicillin; Z80.0 Family history of malignant neoplasm of digestive organs; Z88.1 Allergy status to other antibiotic agents; Z88.8 Allergy status to other drugs, medicaments and biological substances
CPT/HCPCS: 88305; 45385; J2405; J2704

== ENCOUNTER 2024-02-22 08:44 | Emergency (ER) | payer MEDICARE ==
[2024-02-22 09:59] LABS: Appearance,Urine Cloudy (Clear); Bacteria,Urine Moderate /hpf; Bilirubin,Urine Negative (Negative); Blood,Urine Negative (Negative); Color,Urine Light Yellow; Glucose,Urine (UA) Negative (Negative); Hyaline Casts,Urine 6 /lpf (0-2); Ketones,Urine Negative (Negative); Leukocyte Esterase,Urine Small (Negative); Mucus,Urine Occasional /hpf; Nitrite,Urine Negative (Negative); PH, Urine 5.5 (5.0-8.0); Protein,Urine 1+ (Negative); RBC,Urine 1 /hpf (0-5); Squamous Epithelial Cell,Urine 8 /hpf (0-4); Urobilinogen,Urine <2.0 mg/dL (<2.0); WBC,Urine 3 /hpf (0-5)
[2024-02-22 10:31] LABS: Basophils % (A) 1 %; Eosinophils # (A) 0.2 k/uL (0-0.7); Eosinophils % (A) 3 %; HCT 36.9 % (34.0-46.0); Lymphocytes # (A) 0.5 k/uL (1.0-4.8); Lymphocytes % (A) 11 %; MCH 29.1 pg (25.0-35.0); MCHC 32.7 g/dL (31.0-37.0); MCV 89.2 fL (80.0-100.0); Mean Platelet Volume 7.6; Monocytes # (A) 0.4 k/uL (0-1.0); Monocytes % (A) 8 %; Neutrophils # (A) 3.7 k/uL (1.3-7.7); Neutrophils % (A) 74 %; Platelet Count 228 k/uL (150-450); RBC 4.14 m/uL (3.80-5.40); RDW 12.9 % (11.5-15.5)
--- NOTE | 2024-02-22 10:46 | CT ---
EXAMINATION TYPE: CT abdomen pelvis wo con DATE OF EXAM: 02/22/2024 COMPARISON: None CLINICAL INDICATION: Female, 83 years old with history of back pain; PHH, back/hip pain TECHNIQUE: CT scan of the abdomen and pelvis is performed without oral or IV contrast. CT DLP: 536.8 mGycm Automated exposure control for dose reduction was used. FINDINGS: Within the limitations of a non-contrast study, the following observations are made. LUNG BASES: Basilar subsegmental scarring or atelectasis. Calcified granuloma left lower lobe. LIVER/GB: Diffuse hypoattenuation throughout the liver compatible with fatty infiltration correlate f or underlying hepatocellular disease. Borderline hepatomegaly measuring 17 cm. PANCREAS: No significant abnormality is seen. SPLEEN: No significant abnormality is seen. ADRENALS: No significant abnormality is seen. KIDNEYS: No significant abnormality is seen. Nonspecific mild perinephric stranding. BOWEL: No significant abnormality is seen. Moderate diverticulosis but no CT evidence of diverticulit is. Appendix is not seen with certainty. LYMPH NODES: No greater than 1cm abdominal or pelvic lymph nodes are appreciated. OSSEOUS STRUCTURES: Scoliosis with severe multilevel degenerative disc disease bilateral hypertrophic hip arthropathy.. OTHER: Mesenteric stranding is noted which can be associated with a chronic panniculitis or mesenteri tis. Atherosclerotic change aorta. No evidence of aneurysm. Soft tissue calcified granuloma right glu teal region. Trace amount of free fluid in the pelvis. IMPRESSION: 1. Mesenteric stranding\edema correlate for mesenteritis or panniculitis. 2. Hepatomegaly with findings suggestive of hepatic steatosis. 3. Multilevel severe degenerative disc disease, facet arthropathy and foraminal encroachment. [facility], , 02/22/2024 10:43 AM
[2024-02-22 10:47] LABS: ALT 20 U/L (4-34); AST 21 U/L (14-36); African American GFR (CKD) 73 (>60 ml/min/1.73 sqM); Albumin 4.7 g/dL (3.5-5.0); Alkaline Phosphatase 61 U/L (38-126); Anion Gap 10 mmol/L; Blood Urea Nitrogen 23 mg/dL (7-17); Calcium 10.1 mg/dL (8.4-10.2); Carbon Dioxide 25 mmol/L (22-30); Chloride 106 mmol/L (98-107); Glucose 102 mg/dL (74-99); Non-African American GFR(CKD) 64 (>60 ml/min/1.73 sqM); Potassium 4.6 mmol/L (3.5-5.1); Sodium 141 mmol/L (137-145); Total Bilirubin 0.4 mg/dL (0.2-1.3); Total Protein 7.7 g/dL (6.3-8.2)
--- NOTE | 2024-02-22 12:20 | XR ---
EXAMINATION TYPE: XR tibia fibula RT DATE OF EXAM: 02/22/2024 11:48 AM COMPARISON: None CLINICAL INDICATION: Female, 83 years old with history of hx BKA pain, wound; PHH TECHNIQUE: XR tibia fibula RT; examined in AP and lateral projections. FINDINGS: Below-knee amputation without evidence for osseous erosion. No subcutaneous gas. No evidenc e of fracture. Mild joint space narrowing and osteophyte formation of the knee. IMPRESSION: 1. No evidence of acute fracture. 2. Below-knee amputation without evidence for osseous erosion. No subcutaneous gas. [facility], , 02/22/2024 12:17 PM
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
[2024-02-22] MEDS: ACET/COD 300 MG/30 MG STARTER PACK 6 TAB BTL PO STA (13:45)
[2024-02-22 13:56] VITALS: BP 152/76; PULSE 70; RESP 15; TEMP 98.2
== END 2024-02-22 13:53 | disposition home or self-care (01) ==
LOC: EC 08:44
DX: M51.369 Other intervertebral disc degeneration, lumbar region without mention of lumbar back pain or lower extremity pain (principal); M19.90 Unspecified osteoarthritis, unspecified site; Z88.0 Allergy status to penicillin; Z88.5 Allergy status to narcotic agent; Z88.7 Allergy status to serum and vaccine; Z91.040 Latex allergy status; Z87.891 Personal history of nicotine dependence
CPT/HCPCS: 36415; 74176; 80053; 81001; 85025; 99284

== ENCOUNTER 2024-02-29 05:59 | Emergency (ER) | payer MEDICARE ==
[2024-02-29 06:10] VITALS: RESP 18; TEMP 98.1
[2024-02-29 06:12] LABS: Glucose,Whole Blood 181 mg/dL (70-110)
[2024-02-29 06:20] LABS: Basophils % (A) 0 %; Eosinophils # (A) 0.1 k/uL (0-0.7); Eosinophils % (A) 1 %; HCT 39.3 % (34.0-46.0); Lymphocytes # (A) 0.7 k/uL (1.0-4.8); Lymphocytes % (A) 8 %; MCH 28.9 pg (25.0-35.0); MCV 87.5 fL (80.0-100.0); Mean Platelet Volume 7.4; Monocytes # (A) 0.4 k/uL (0-1.0); Monocytes % (A) 5 %; Neutrophils # (A) 6.8 k/uL (1.3-7.7); Neutrophils % (A) 84 %; Platelet Count 299 k/uL (150-450); RBC 4.49 m/uL (3.80-5.40); RDW 12.7 % (11.5-15.5); WBC 8.1 k/uL (3.8-10.6)
[2024-02-29 06:35] LABS: ALT 19 U/L (4-34); AST 24 U/L (14-36); African American GFR (CKD) >90 (>60 ml/min/1.73 sqM); Albumin 4.9 g/dL (3.5-5.0); Alkaline Phosphatase 69 U/L (38-126); Amylase 67 U/L (30-110); Anion Gap 14 mmol/L; Blood Urea Nitrogen 18 mg/dL (7-17); Calcium 10.1 mg/dL (8.4-10.2); Carbon Dioxide 24 mmol/L (22-30); Chloride 102 mmol/L (98-107); Glucose 178 mg/dL (74-99); Lipase 59 U/L (23-300); Non-African American GFR(CKD) 81 (>60 ml/min/1.73 sqM); Potassium 4.1 mmol/L (3.5-5.1); Sodium 140 mmol/L (137-145); Total Bilirubin 0.6 mg/dL (0.2-1.3); Total Protein 8.1 g/dL (6.3-8.2)
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
[2024-02-29] MEDS: SODIUM CHLORIDE 0.9% 1,000 ML IV ONE (08:12)
[2024-02-29] MEDS: METOCLOPRAMIDE 5 MG/ML 2 ML VIAL IVP STA (08:14)
[2024-02-29] MEDS: HYDROmorphone 0.5 MG/0.5 ML SYRINGE IVP STA (08:15)
[2024-02-29 09:24] VITALS: BP 137/63; PULSE 81
== END 2024-02-29 09:34 | disposition home or self-care (01) ==
LOC: EC 05:59
DX: R11.2 Nausea with vomiting, unspecified (principal); Z88.7 Allergy status to serum and vaccine; Z91.040 Latex allergy status; Z88.5 Allergy status to narcotic agent; Z88.0 Allergy status to penicillin; Z88.8 Allergy status to other drugs, medicaments and biological substances; Z87.891 Personal history of nicotine dependence
CPT/HCPCS: 36415; 80053; 82150; 83605; 83690; 85025; 99285; 96374; 96375; 96361; J2765; J1171

== ENCOUNTER → 2024-07-18 | Outpatient (CLI) | payer MEDICARE ==
--- NOTE | 2024-07-18 14:34 | MR ---
EXAMINATION TYPE: MR lumbar spine wo con DATE OF EXAM: 07/18/2024 12:28 PM COMPARISON: None. CLINICAL INDICATION: Female, 83 years old with history of M54.16 RADICULOPATHY, Low back pain into rt hip and leg TECHNIQUE: Multiplanar, multisequence images of the lumbar spine were acquired without IV contrast. FINDINGS: There is a degenerated dextroconvex scoliosis along the lower lumbar spine. There is moderate degenerative disc disease throughout, with desiccated, narrowed, and bulging discs. Some scattered Modic type I edematous endplate change particularly L3-S1 levels and severe at T12-L1 where there is large broad-based posterior, right paracentral, and right intraforaminal disc extrusio n. 2.1 cm of superior migration of extruded disc to occupy about right lateral recess, axial image 39 and sagittal image 8. At T12/L1, there is a moderate to severe focal spinal canal stenosis compression onto the distal cord . Multilevel moderate to severe hypertrophic facet arthropathy is present. Ligament of the specimen to lower lumbar spine. Trace grade 1 anterolisthesis L4-L5. Remaining alignment is maintained. Vertebral body heights are preserved. Overall moderate spinal canal stenosis L3-L4 and mild at multiple additional levels throughout the carine mbar spine. On the right, there is moderate foraminal stenosis at L5-S1 with a right lateral disc osteophyte comp noemí probably impinging the extraforaminal right L5 nerve root. Moderate neural foraminal stenosis at L1-L2 and severe at T12-L1. On the left, moderate foraminal stenosis L3-L4, L4-L5, L5-S1. Left lateral disc osteophyte complex at L5-S1 suspected to impinge the extraforaminal left L5 nerve. No prevertebral or paravertebral soft tissue abnormality seen. IMPRESSION: 1. Degenerated dextroscoliosis centered along the lower lumbar spine. Moderate to advanced hypertroph ic facet arthropathy with degenerative grade 1 anterolisthesis at L4-L5. 2. Moderate multilevel degenerative disc disease, severe at T12-L1 with extensive Modic type I change and a large disc extrusion toward the right. Sequestered disc material shows 2.1 cm of superior migr ation within the right lateral recess. Moderate to severe spinal canal stenosis here with mild compre ssion of the distal cord just above the conus medullaris. Right lateral recess stenosis and severe ri ght neural foraminal stenosis. 3. Moderate spinal canal stenosis at L3-L4 and mild at multiple additional levels throughout the lumb ar spine. 4. Lateral disc osteophyte complex on both sides at L5-S1 suspected to impinge the bilateral extrafor aminal L5 nerve roots. 5. Additional moderate left neural foraminal stenoses from L3 to S1 levels. [facility], , 07/18/2024 2:32 PM
== END | disposition home or self-care (01) ==
LOC: RADMRIMAIN 11:50
PROVIDERS: ATTEND Family Medicine
DX: M47.26 Other spondylosis with radiculopathy, lumbar region (principal); M51.16 Intervertebral disc disorders with radiculopathy, lumbar region; M25.78 Osteophyte, vertebrae; M43.16 Spondylolisthesis, lumbar region; M48.061 Spinal stenosis, lumbar region without neurogenic claudication; M51.15 Intervertebral disc disorders with radiculopathy, thoracolumbar region
CPT/HCPCS: 72148